=== PATIENT | female | born 2000 | race Caucasian/White ===

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

== ENCOUNTER 2023-02-19 11:10 | Emergency (ER) | payer OTHER ==
[~2023-02-19] VITALS: Ht 165.1 cm; Wt 61.2 kg
[2023-02-19 11:13] VITALS: BP 126/74
--- NOTE | 2023-02-19 11:20 | NUR ---
pt ambulatory to bed 07
[2023-02-19] MEDS ORDERED: IBUPROFEN 600 MG TAB PO ONE (11:40)
[2023-02-19] MEDS ORDERED: IBUP-2213 PO (11:48)
[2023-02-19] MEDS ORDERED: LID5T TP (11:48)
[2023-02-19 12:14] VITALS: BP 126/74
--- NOTE | 2023-02-19 12:14 | NUR ---
Patient discharged with v/s stable. Written and verbal after care instructions given and explained. Patient alert, oriented and verbalized understanding of instructions. Ambulatory with steady gait. All questions addressed prior to discharge. ID band removed. Patient advised to follow up with PMD. Rx of lidocaine, ibuprofen (sent) given. Patient educated on indication of medication including possible reaction and side effects. Opportunity to ask questions provided and answered. work note given
== END 2023-02-19 12:14 | disposition home or self-care (01) ==
LOC: MED 11:10
DX: S39.012A Strain of muscle, fascia and tendon of lower back, initial encounter (principal); S50.02XA Contusion of left elbow, initial encounter; R51.9 Headache, unspecified; Z79.899 Other long term (current) drug therapy; Z79.1 Long term (current) use of non-steroidal anti-inflammatories (NSAID); V43.92XA Unspecified car occupant injured in collision with other type car in traffic accident, initial encounter; Y93.89 Activity, other specified; Y92.410 Unspecified street and highway as the place of occurrence of the external cause; Y99.8 Other external cause status
CPT/HCPCS: 99283